=== PATIENT | male | born 1955 | race Caucasian/White ===

== ENCOUNTER 2017-02-19 21:38 | Emergency (ER) | payer OTHER ==
[2017-02-19 21:53] VITALS: TEMP 98.4; BMI 31.6
--- NOTE | 2017-02-19 22:15 | PDOC ---
History of Present Illness - General Chief Complaint: Hematuria Stated Complaint: GI BLEED Time Seen by Provider: 02/19/17 21:58 Past History - Past Medical History Allergies/Adverse Reactions: Allergies Allergy/AdvReac Type Severity Reaction Status Date / Time No Known Allergies Allergy Verified 02/19/17 21:53 Home Medications: Ambulatory Orders Aspirin [ASA -] 81 mg PO DAILY 02/19/17 Prednisone [Deltasone -] 2.5 mg PO DAILY 02/19/17 Cancer: Yes (testicular 1999) Other medical history: arthritis - Suicide/Smoking/Psychosocial Hx Smoking History: Never smoked Have you smoked in the past 12 months: No Information on smoking cessation initiated: No Hx Alcohol Use: No Drug/Substance Use Hx: No Substance Use Type: None *Physical Exam - Vital Signs Last Vital Signs Temp Pulse Resp BP Pulse Ox 98.4 F 97 H 18 157/78 100 02/19/17 21:51 02/19/17 21:51 02/19/17 21:51 02/19/17 21:51 02/19/17 21:51
--- NOTE | 2017-02-19 22:16 | PDOC ---
Attending Attestation - Resident Resident Name: AlejandraBonifacio - ED Attending Attestation I have performed the following: I have examined & evaluated the patient, The case was reviewed & discussed with the resident, I agree w/resident's findings & plan, Exceptions are as noted - HPI HPI: 02/19/17 22:15 61 yo male with nonpainful hematuria started several hours ago PMH hypercholesterlemia /arthritis PSH testicular cancer, orchiectomy PCP Dr Wills 02/19/17 22:17 02/19/17 23:59 - Physicial Exam PE: 02/20/17 00:00 61 yo male p/w painless hematuria that started afew hours ago HEENT wnl lungs cta b.l cvs [id number] no flank pain,no cva tenderness abd no rebound no guarding extremities no edema, no cellulits neuro axox3,ambulatory skin no rashes - Medical Decision Making 02/20/17 02:01 there are 69,000 wbc in urine although he has no fever or c/o increased frequency will give cipro in case atypical presentation uti plan: see Dr Street this week
--- NOTE | 2017-02-19 22:30 | PDOC ---
History of Present Illness - General Chief Complaint: Hematuria Stated Complaint: GI BLEED Time Seen by Provider: 02/19/17 21:58 - History of Present Illness Initial Comments: 02/19/17 22:20 The patient is a 61 year old female with a history of HLD, arthritis, who presents for evaluation of painless hematuria. The patient reports a several hour history of hematuria prompting his presentation to the ED today. He reports that he had an episode of dark urine and then another episode where the urine was darker prior to presentation. He denies ever having symptoms like this in the past. He denies fevers, chills, SOB, chest pain, abdominal pain, flank pain, or pain on urination. Past History - Past Medical History Allergies/Adverse Reactions: Allergies Allergy/AdvReac Type Severity Reaction Status Date / Time No Known Allergies Allergy Verified 02/19/17 21:53 Home Medications: Ambulatory Orders Aspirin [ASA -] 81 mg PO DAILY 02/19/17 Prednisone [Deltasone -] 2.5 mg PO DAILY 02/19/17 Cancer: Yes (testicular 2000) Other medical history: arthritis - Suicide/Smoking/Psychosocial Hx Smoking History: Never smoked Have you smoked in the past 12 months: No Information on smoking cessation initiated: No Hx Alcohol Use: No Drug/Substance Use Hx: No Substance Use Type: None Review of Systems - Review of Systems Comments:: 02/19/17 22:22 Constitutional: No fevers, chills, fatigue, malaise HEENT: No Rhinorrhea, nasal congestion, Cardiovascular: No chest pain, syncope, palpitations, lightheadedness Respiratory: No Cough, SOB, Hemoptysis, Gastrointestinal: No Abdominal pain, Nausea, Vomiting, Constipation, Diarrhea, Melena Genitourinary: Hematuria No Dysuria, Frequency, Urgency, Hesitancy, Flank pain Musculoskeletal: No Myalgia, arthralgia Skin: No rashes, itching, bruising, pallor Neurologic: No Headache, Dizziness, Numbness, Weakness, or Tingling *Physical Exam - Vital Signs Last Vital Signs Temp Pulse Resp BP Pulse Ox 98.4 F 97 H 18 157/78 100 02/19/17 21:51 02/19/17 21:51 02/19/17 21:51 02/19/17 21:51 02/19/17 21:51 - Physical Exam Comments: 02/19/17 22:23 General Appearance: Nourished. No Apparent Distress HEENT: EOMI, FERNANDO. Neck: No Cervical Lymphadenopathy Respiratory/Chest: Lungs Clear, Normal Breath Sounds. No Crackles, Rales, Rhonchi, Wheezing Cardiovascular: Regular Rhythm, Regular Rate. No Murmur, Gallops, Rubs Gastrointestinal/Abdominal: Normal Bowel Sounds, Soft. No Guarding, Rebound, Tenderness Musculoskeletal: No CVA Tenderness Extremity: Normal Capillary Refill Integumentary: Normal Color, Dry, Warm Neurologic: Fully Oriented, Alert, Normal Mood/Affect, Normal Response, ED Treatment Course - LABORATORY CBC & Chemistry Diagram: 02/19/17 22:45 02/19/17 22:45 Medical Decision Making - Medical Decision Making 02/19/17 22:24 The patient is a 61 year old female with a history of HLD, arthritis, who presents for evaluation of painless hematuria. Given that the patient's symptoms are painless and only consist of isolated hematuria, we will obtain a UA to evaluate the extent of his hematuria. We will also obtain a cbc, and cmp to evaluate for infectious etiology as well as metabolic derangement and evaluate the patient's creatinine level for possible john. We will continue to monitor and reassess. 02/20/17 00:03 cbc, cmp are unremarkable. UA demonstrates large amount of rbc. The patient reports a history of testicular cancer. We will obtain a bladder and scrotal US to evaluate further. Likely discharge home with follow up with the patient' s primary Dr. Street. *DC/Admit/Observation/Transfer Diagnosis at time of Disposition: Hematuria Qualifiers: Hematuria type: gross Qualified Code(s): R31.0 - Gross hematuria - Discharge Dispostion Disposition: HOME Condition at time of disposition: Stable - Referrals Referrals: Donato Street MD [Primary Care Provider] - - Patient Instructions Printed Discharge Instructions: DI for Hematuria Additional Instructions: Please follow up with Dr Street this week
[2017-02-19 23:13] LABS: URINE APPEARANCE CLOUDY; URINE BILIRUBIN NEGATIVE (NEGATIVE); URINE BLOOD 3+ (NEGATIVE); URINE COLOR DKYELLOW; URINE GLUCOSE (UA) NEGATIVE (NEGATIVE); URINE KETONE NEGATIVE (NEGATIVE); URINE NITRITE NEGATIVE (NEGATIVE); URINE UROBILINOGEN NEGATIVE mg/dL (0.2-1.0)
[2017-02-19 23:14] LABS: BASOPHIL 1.1 % (0-2.0); MCH 32.5 pg (25.7-33.7); MCHC 34.3 g/dl (32.0-35.9); MEAN CELL VOLUME 94.8 fl (80-96); MEAN PLT VOLUME 8.8 fl (7.5-11.1); NEUTROPHILS 75.9 % (42.8-82.8); PLATELET COUNT 259 K/MM3 (134-434); RDW 12.6 % (11.9-15.9); WHITE BLOOD COUNT 7.7 K/mm3 (4.0-10.0)
[2017-02-19 23:15] LABS: URINE PROTEIN 2+ (NEGATIVE)
[2017-02-19 23:16] LABS: URINE MUCUS RARE; URINE RBC 1811 /hpf (0-3); URINE WBC 69 /hpf (3-5); YEAST FEW
[2017-02-19 23:30] LABS: ALBUMIN 4.1 g/dl (3.4-5.0); ANION GAP 8 (8-16); CALCIUM 8.9 mg/dL (8.5-10.1); CO2 26 mmol/L (21-32); GLUCOSE,RANDOM 148 mg/dL (74-106)
[2017-02-19 23:34] LABS: ALK PHOS 78 U/L (45-117); BILIRUBIN,TOTAL 0.4 mg/dL (0.2-1.0); CREATININE 0.9 mg/dL (0.7-1.3); SGOT/AST 33 U/L (15-37); SGPT/ALT 46 U/L (12-78); TOT PROT 7.7 g/dl (6.4-8.2)
--- NOTE | 2017-02-20 01:45 | PDOC ---
*Physical Exam - Vital Signs Last Vital Signs Temp Pulse Resp BP Pulse Ox 98.4 F 97 H 18 157/78 100 02/19/17 21:51 02/19/17 21:51 02/19/17 21:51 02/19/17 21:51 02/19/17 21:51 ED Treatment Course - LABORATORY CBC & Chemistry Diagram: 02/19/17 22:45 02/19/17 22:45 - ADDITIONAL ORDERS Additional order review: Laboratory Results 02/19/17 02/19/17 23:00 22:45 Sodium 137 Potassium 4.2 Chloride 103 Carbon Dioxide 26 Anion Gap 8 BUN 25 H Creatinine 0.9 Creat Clearance w eGFR > 60 Random Glucose 148 H Calcium 8.9 Total Bilirubin 0.4 AST 33 ALT 46 Alkaline Phosphatase 78 Total Protein 7.7 Albumin 4.1 Urine Color Dkyellow Urine Appearance Cloudy Urine pH 6.0 Ur Specific [place] 1.019 Urine Protein 2+ H Urine Glucose (UA) Negative Urine Ketones Negative Urine Blood 3+ H Urine Nitrite Negative Urine Bilirubin Negative Urine Urobilinogen Negative Urine RBC 1811 Urine WBC 69 Urine Mucus Rare Urine Yeast Few 02/19/17 22:45 RBC 4.01 MCV 94.8 MCHC 34.3 RDW 12.6 MPV 8.8 Neutrophils % 75.9 Lymphocytes % 12.6 Monocytes % 9.4 Eosinophils % 1.0 Basophils % 1.1 *DC/Admit/Observation/Transfer Diagnosis at time of Disposition: Hematuria Qualifiers: Hematuria type: gross Qualified Code(s): R31.0 - Gross hematuria; R31.0 - Gross hematuria - Discharge Dispostion Condition at time of disposition: Stable - Patient Instructions Printed Discharge Instructions: DI for Hematuria Additional Instructions: Please follow up with Dr Street this week
--- NOTE | 2017-02-20 02:11 | PDOC ---
*Physical Exam - Vital Signs Last Vital Signs Temp Pulse Resp BP Pulse Ox 98.4 F 97 H 18 157/78 100 02/19/17 21:51 02/19/17 21:51 02/19/17 21:51 02/19/17 21:51 02/19/17 21:51 - Physical Exam General Appearance: Yes: Nourished, Appropriately Dressed HEENT: positive: FERNANDO, Normal ENT Inspection Neck: positive: Trachea midline, Normal Thyroid, Supple Respiratory/Chest: positive: Lungs Clear, Normal Breath Sounds Cardiovascular: positive: Regular Rhythm, Regular Rate Gastrointestinal/Abdominal: positive: Normal Bowel Sounds, Tender Male Genitalia: positive: hematuria. negative: discharge, testicular tenderness (right testicle removed), testicular mass, epididymus tender, inguinal hernia, hernia Musculoskeletal: positive: Normal Inspection Extremity: positive: Normal Capillary Refill, Normal Inspection, Normal Range of Motion Integumentary: positive: Normal Color, Dry, Warm Neurologic: positive: Fully Oriented, Alert, Normal Mood/Affect, Normal Response ED Treatment Course - LABORATORY CBC & Chemistry Diagram: 02/19/17 22:45 02/19/17 22:45 - ADDITIONAL ORDERS Additional order review: Laboratory Results 02/19/17 02/19/17 23:00 22:45 Sodium 137 Potassium 4.2 Chloride 103 Carbon Dioxide 26 Anion Gap 8 BUN 25 H Creatinine 0.9 Creat Clearance w eGFR > 60 Random Glucose 148 H Calcium 8.9 Total Bilirubin 0.4 AST 33 ALT 46 Alkaline Phosphatase 78 Total Protein 7.7 Albumin 4.1 Urine Color Dkyellow Urine Appearance Cloudy Urine pH 6.0 Ur Specific [place] 1.019 Urine Protein 2+ H Urine Glucose (UA) Negative Urine Ketones Negative Urine Blood 3+ H Urine Nitrite Negative Urine Bilirubin Negative Urine Urobilinogen Negative Urine RBC 1811 Urine WBC 69 Urine Mucus Rare Urine Yeast Few 02/19/17 22:45 RBC 4.01 MCV 94.8 MCHC 34.3 RDW 12.6 MPV 8.8 Neutrophils % 75.9 Lymphocytes % 12.6 Monocytes % 9.4 Eosinophils % 1.0 Basophils % 1.1 Medical Decision Making - Medical Decision Making 02/20/17 02:11 61 yo F with h/o testicular cancer s/p left sided testicular removal, HLD, and arthritis, who arrives with painless hematuria. No other associated complaints. Physical exam unremarkable. Patient with isolated hematuria. UA with 3 + blood, 1811 RBC's. CBC/CMP unremarkable. Continue to monitor and reassess. Received handoff from Dr. Roberts ED course: Bladder U/S: unremarkable Testicular U/S: Unremarkable Pt. reveals he was seen at outpatient facility for same complaint today but returns because of worsening/prolonged symptom. Was prescribed Ciprofloxacin outpatient today. Stable D/c with follow up to Dr. Street *DC/Admit/Observation/Transfer Diagnosis at time of Disposition: Hematuria Qualifiers: Hematuria type: gross Qualified Code(s): R31.0 - Gross hematuria - Discharge Dispostion Condition at time of disposition: Stable - Referrals Referrals: Donato Street MD [Primary Care Provider] - - Patient Instructions Printed Discharge Instructions: DI for Hematuria Additional Instructions: Please follow up with Dr Street this week - Post Discharge Activity
[2017-02-20 02:18] VITALS: BP 144/89; PULSE 85
[2017-02-20 09:13] LABS: URINE LEUK ESTERASE Negative (NEGATIVE)
== END 2017-02-20 02:18 | disposition home or self-care (01) ==
LOC: JER 21:38
DX: R31.0 Gross hematuria (principal); Z85.47 Personal history of malignant neoplasm of testis; Z90.79 Acquired absence of other genital organ(s); E78.5 Hyperlipidemia, unspecified; M12.9 Arthropathy, unspecified; Z79.82 Long term (current) use of aspirin
CPT/HCPCS: 36415; 76856-TC; 76870-TC; 80053; 81003; 81015; 85025; 87086; 99282-25